=== PATIENT | female | born 1980 | race Caucasian/White ===

== ENCOUNTER 2020-09-25 00:08 | Emergency (ER) | payer MEDICAID ==
[~2020-09-25] VITALS: Ht 154.9 cm; Wt 70.3 kg
[2020-09-25 01:10] VITALS: BP 135/99
--- NOTE | 2020-09-25 01:15 | NUR ---
PT BIBSELF C/O HEADACHE L2VCRSO, VOMITING AND UNABLE TO EAT X2 DAYS WITH BLURRY VISION, LOWER BACK "BURNING PAIN THAT SHOOTS TO LEGS" PT AAOX4 BREATHING EVENLY AND UNLABORED PT ATTACHED TO MONITOR AND POX.
[2020-09-25] MEDS ORDERED: HYDROMORPHONE INJ 2 MG/ML DISP.SYRIN ONE (01:48)
[2020-09-25] MEDS ORDERED: ONDANSETRON 4 MG TAB.RAPDIS ONE (01:48)
[2020-09-25] MEDS ORDERED: HYDROMORPHONE INJ 2 MG/ML DISP.SYRIN IM ONE (02:00)
[2020-09-25] MEDS ORDERED: ONDA4TAB5 PO (02:00)
[2020-09-25] MEDS ORDERED: LORA-259 PO (02:00)
[2020-09-25] MEDS ORDERED: HYDR-4209 PO (02:00)
[2020-09-25] MEDS ORDERED: ONDANSETRON 4 MG TAB.RAPDIS SL ONE (02:00)
--- NOTE | 2020-09-25 02:13 | NUR ---
Patient discharged to home in stable condition. Written and verbal after care instructions given. Patient verbalizes understanding of instruction. pT ambulatory with a steady gait
== END 2020-09-25 02:13 | disposition home or self-care (01) ==
LOC: ER 00:19
DX: R51.9 Headache, unspecified (principal); M54.30 Sciatica, unspecified side; F41.9 Anxiety disorder, unspecified; Z98.890 Other specified postprocedural states; Z79.899 Other long term (current) drug therapy
CPT/HCPCS: 96372; 99283; J1170; Q0162

== ENCOUNTER 2020-12-22 23:09 | Emergency (ER) | payer MEDICAID ==
[~2020-12-22] VITALS: Ht 152.4 cm; Wt 69.4 kg
[~2020-12-22 23:09] MED LIST: HYDR-4209 PO; LORA-259 PO; ONDA4TAB5 PO
[2020-12-22 23:33] VITALS: BP 129/89
== END 2020-12-23 00:06 | disposition home or self-care (01) ==
LOC: ER 23:14
DX: S00.03XA Contusion of scalp, initial encounter (principal); J45.909 Unspecified asthma, uncomplicated; Z98.890 Other specified postprocedural states; Z88.8 Allergy status to other drugs, medicaments and biological substances; Z79.899 Other long term (current) drug therapy; W20.8XXA Other cause of strike by thrown, projected or falling object, initial encounter; Y93.01 Activity, walking, marching and hiking; Y92.098 Other place in other non-institutional residence as the place of occurrence of the external cause; Y99.8 Other external cause status